=== PATIENT | male | born 1960 | race Hispanic/Latino ===

== ENCOUNTER 2019-11-25 20:36 | Inpatient (IN) | payer MEDICARE, OTHER ==
[2019-11-25 21:10] VITALS: BMI 22.9
[2019-11-25] MEDS ORDERED: Ondansetron PF 4 MG/2 ML Vial IVP PRN (22:31)
[2019-11-25] MEDS: Sodium Chloride 0.9% 1,000 ML IV SCH (22:43)
[2019-11-25] MEDS ORDERED: Acetaminophen 650 MG/20.3 ML UDCUP PO PRN (22:48)
[2019-11-25 23:10] LABS: INR-International Normal Ratio 3.2; Prothrombin Time 32.4 SEC (12.0-14.7)
[2019-11-26] MEDS ORDERED: Acetaminophen 500 MG TAB PO PRN (01:17)
--- NOTE | 2019-11-26 01:59 | HP ---
PRIMARY CARE PHYSICIAN: Dr. Sharp. CHIEF COMPLAINT: Dysphagia and weakness and unexpected weight loss x3 months. Transfer from [facility] [place] ER for further evaluation. HISTORY OF PRESENT ILLNESS: A 59-year-old male, lifelong heavy smoker, past medical history of hypertension; paroxysmal atrial fibrillation, on Coumadin; glaucoma, who presented to [facility] [place] ER for 3-month history of dysphagia, only being able to tolerate liquids associated with 40-pound unexpected weight loss and fatigue that prompting evaluation. He noted associated complaints of nausea with inability to vomit. He denies any angina, dyspnea, fevers, chills, hematemesis, hematochezia, melena, hemoptysis, or any localized pain. In the ER, workup with a 2-view chest x-ray revealed a very large middle and anterior mediastinal mass measuring up to 10 cm in size, which was compared with a prior January 2018 chest x-ray. A followup CT chest with contrast revealed a large heterogeneous mass in the left upper lobe with extension into the mediastinum in the region of AP window with mass abutting the trachea as well as a large central area of necrosis and mass measuring 9.4 cm x 11 cm x 9.6 cm with volume loss adjacent to large mass resulting in mild mass effect of the left upper lobe bronchus; additionally, a mass in the anterior medial right upper lobe measuring 2.1 cm was noted as well as lymphadenopathy as well as hypodense lesions throughout each liver lobe concerning firm metastatic lesions. The patient was transferred to [facility] ER for further evaluation. At bedside, the patient corroborates history. He offers no other acute complaints. He complains of headaches in the right side, but denies any focal neurological deficits or seizure-like activity. He denies any prior cancer screening workup. Nursing staff notes no other acute events. PAST MEDICAL HISTORY: Chronic lifelong smoker, previously smoking up to 7 packs per day; hypertension; paroxysmal atrial fibrillation, on Coumadin; glaucoma. PAST SURGICAL HISTORY: Rotator cuff surgery. SOCIAL HISTORY: The patient started smoking since age of 9. He previously smoked up to 7 packs per day, but he currently smokes a pack a week. He denies any illicit drug use. 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 ALLERGIES: NONE REPORTED. REVIEW OF SYSTEMS: Pertinent positives as per HPI. Remainder of review of systems negative. HOME MEDICATIONS: Home medication will be reviewed as per admission medication reconciliation. FAMILY HISTORY: The patient reports that all his family members are . PHYSICAL EXAMINATION: VITAL SIGNS: Temperature maximum 98.6, pulse 66 to 76, blood pressure 132/71 to 152/79, oxygen saturation 97% on room air, respirations 16 to 18. GENERAL APPEARANCE: An elderly, thin, malnourished-appearing male, who is awake, alert, oriented, coherent, lucid, not in any obvious distress. HEENT: Normocephalic, atraumatic. No facial asymmetry. Mucous membranes appear moist. Pupils equally round. Extraocular muscles intact. NECK: Supple. Trachea appears to be midline and the patient is able to swallow without any difficulty with elevation of trachea noted. CARDIOVASCULAR: S1, S2. Regular rate and rhythm. No harsh murmurs. No reproducible chest wall tenderness to palpation. LUNGS: Bilateral equal air entry on posterior auscultation. Nonlabored respirations. Symmetrical chest expansion. No wheezing or rales. ABDOMEN: Soft, nontender, nondistended. EXTREMITIES: No appreciable lower extremity edema. SKIN: Warm to touch without rash, pallor, or abrasions. NEUROLOGIC: No facial asymmetry. No drift of upper or lower extremities. 2+ hand mat machine tender intact. No tremors noted. LABORATORY DATA: Labs from outside facility reviewed. WBC 7.8, H and H 12.5/40.3, and platelets 186. Sodium 146, potassium 3.4, chloride 109, bicarb 27, glucose 95, BUN and creatinine 9/0.6, total protein 8.0, albumin 3.3, AST 22, ALT 17, alkaline phosphatase 117, serum osmolality 289. INR 3.2. IMAGING: Two-view chest x-ray in comparison to January 2018 reveals a very large middle and anterior mediastinal mass obscuring the anterior aspect. Possible postobstructive pneumonitis of the left lung base. CT chest with contrast in comparison to December 2010 reveals a large heterogeneous mass in the left upper lobe with extension to the mediastinum abutting trachea measuring 9.4 cm x 11 cm x 9.6 cm with large central area of hypoattenuation, likely related to necrosis. The mass in anterior aspect of medial right upper lobe measuring 2.1 cm. Prominent pretracheal lymphadenopathy abutting the mass extending into the mediastinum. Several hypodense lesions seen throughout each lobe of the liver. ASSESSMENT: 1. Metastatic cancer, newly diagnosed, unspecified, Primary suspected bronchogenic. The [facility] He is noted to have prodromal complaints over the past several months with abnormal findings as aforementioned. We will consult Pulmonology/Oncology for further evaluation and assessment. We will hold Coumadin. The patient will likely require definitive diagnostic evaluation as an outpatient. 2. Dysphagia, likely secondary to #1. We will consult GI for endoscopic evaluation, consideration for PEG tube. Hold anticoagulation. Repeat INR in a.m., noting the patient is on Coumadin, which will be held. 3. Unexpected weight loss likely secondary to #1. Continue oral dietary supplements with Boost and Ensure, which the patient has been tolerating at home. 4. Heavy lifelong smoker. The patient has been smoking since age of 9 and states that he smoked up to 7 packs per day for a long time. Currently smokes less than 1 pack per week. He requires complete nicotine cessation counseling. 5. Paroxysmal atrial fibrillation, currently normal sinus rhythm. Hold Coumadin. Monitor INR in case any diagnostic evaluations are necessary. 6. Hypertension, benign. 7. Glaucoma. Continue eyedrops. 8. Deep venous thrombosis prophylaxis: SCDs and ambulation. The patient is anticoagulated. 9. Check a.m. labs on 11/26/2019. 10. Code status: Full code as discussed with the patient. He will speak with his family members. DISPOSITION: Inpatient Medr unit admission. Job ID: [id number]
[2019-11-26 05:14] LABS: INR-International Normal Ratio 3.6; Prothrombin Time 35.2 SEC (12.0-14.7)
[2019-11-26] MEDS ORDERED: Phytonadione Neonatal 1 MG/0.5 ML AMP IM SCH (09:45)
[2019-11-26] MEDS ORDERED: Amoxicillin/Potassium Clav 875 MG TAB PO SCH (09:45)
[2019-11-26] MEDS: Sodium Chloride 0.9% 1,000 ML IV SCH ×2 (11:58→16:58)
--- NOTE | 2019-11-26 12:47 | PQF ---
CLINICAL DOCUMENTATION IMPROVEMENT CLARIFICATION FORM: ICD-10 Updated PLEASE DO AN ADDENDUM TO THE PROGRESS NOTE WITH ANY DOCUMENTATION UPDATES OR ADDITIONS AND CARRY THROUGH TO DC SUMMARY. THANK YOU. Date: 11/26/19 ATTN: DR. MORALES Please exercise your independent, professional judgment in responding to the clarification form. Clinical indicators are provided on the bottom of this form for your review Please check appropriate box(s): [ ] Protein Calorie Malnutrition: [ ] Mild [ x ] Moderate [ ] Severe [ ] Other Malnutrition (please specify) __ [ ] Underweight without malnutrition [ ] Cachexia [ ] Other diagnosis [ ] Unable to determine In addition, please specify: Present on Admission (POA): [ ] Yes [ ] No [ ] Unable to determine CLINICAL INDICATORS - SIGNS / SYMPTOMS / LABS / RESULTS AND LOCATION IN MR H&P 11/26: "40-POUND UNEXPECTED WEIGHT LOSS" "MALNOURISHED-APPEARING MALE" RISKS: METASTATIC CANCER (H&P 11/26) DYSPHAGIA (H&P 11/26) TREATMENT: ORAL DIETARY SUPPLEMENTS (H&P 11/26) DIETARY CONSULT Moderate Malnutrition (in acute illness) Energy Intake: <75% of estimated energy requirement for > 7 days Weight Loss: 1-2%/1 week; 5%/ 1 month; 7.5%/3 months Other: mild body fat loss; mild muscle mass loss; mild fluid accumulation; Severe Malnutrition (in acute illness) Energy Intake: < 50% of estimated energy requirement for > 5 days Weight Loss: >1-2%/1 week; >5%/1 month; >7.5%/3 months Other: moderate body fat loss; moderate muscle mass loss; moderate- severe fluid accumulation; measurably reduced switch cleaner strength Moderate Malnutrition (in chronic illness) Energy Intake: <75% of estimated energy requirement for >1 month [employer] Sanitary Engineer [employer] Winform ViewerWeight Loss: 5%/1 month; 7.5 %/3 months; 10%/6 months; 20%/1 year Other: mild body fat loss; mild muscle mass loss; mild fluid accumulation Severe Malnutrition (in chronic illness) Energy Intake: <75% of estimated energy requirement for >1 month Weight Loss: >5%/1 month; >7.5%/3 months; >10%/6 months; >20%/1 year Other: severe body fat loss; severe muscle mass loss; severe fluid accumulation ; measurably reduced switch cleaner strength (This form is maintained as a part of the permanent medical record) 2014 [employer] All Rights Reserved KENDRA [email or web address] Office: [phone] [facility]
--- NOTE | 2019-11-26 14:01 | CON ---
DATE OF CONSULTATION: 11/26/2019 SERVICE: Pulmonary Medicine. REASON FOR CONSULTATION: Pulmonary mass. HISTORY OF PRESENT ILLNESS: The patient is a 59-year-old male with past medical history significant for extensive smoking history. He has had about 30 - to 40-pound weight loss in the past 3 months. He is having on and off hemoptysis. He denies having any night sweats. He was in his usual state of health when he presented to the emergency department because of the increasing weakness. He also had some dysphagia. In the emergency department, chest x-ray was performed demonstrating a large lesion in the left upper lobe. This prompted a CT of the chest. He denies any acute infectious syndrome. He is not having any muscle aches or pains, or coughing up any purulent sputum. PAST MEDICAL HISTORY: 1. Atrial fibrillation, paroxysmal. 2. Glaucoma. 3. Extensive smoking history (greater than 200 pack-year history). PAST SURGICAL HISTORY: Rotator cuff surgery. SOCIAL HISTORY: Negative for tobacco or illicit drug use. He has no exposure to chemicals, dust, asbestos, or tuberculosis. 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 He has an extensive smoking history. FAMILY HISTORY: Noncontributory. ALLERGIES: NO KNOWN DRUG ALLERGIES. MEDICATIONS: List of his inpatient medications was reviewed. No specific updates were made at this time. REVIEW OF SYSTEMS: General; head, ears, eyes, nose, and throat; cardiovascular; respiratory; GI; ; musculoskeletal; neurologic; and skin are negative except as mentioned in HPI. PHYSICAL EXAMINATION: VITAL SIGNS: Afebrile, pulse 61, blood pressure 143/79, respirations 18, and saturation 97% on room air. GENERAL: The patient is awake and alert, in no apparent distress. LUNGS: Wonderful air entry with no prolonged expiratory phase or wheezing present. HEART: Normal rate, regular. ABDOMEN: Soft, nontender, nondistended. Bowel sounds are positive. MUSCULOSKELETAL: No cyanosis or clubbing. There is no pitting in the bilateral lower extremities. NEUROLOGIC: Grossly nonfocal. LABORATORY DATA: INR 3.6. CBC is essentially unremarkable. Basic metabolic profile is also unremarkable. INR however is 3.6. IMAGING STUDIES: CT of the chest from outside facility demonstrates an 11 cm left upper lobe mass. It seems to be extending into the mediastinum. There is also a pretracheal lymph node and multiple liver lesions. ASSESSMENT: 1. Pulmonary mass with likely metastatic process. 2. Tobacco abuse. DISCUSSION AND PLAN: Because of the patient's ongoing headaches, we will get an MRI to make certain that he does not have any intracranial abnormalities. If he does, I would recommend steroids initially. At this point, we need to get a sample out of his chest. I will hold his anticoagulation. I give him a dose of vitamin K. Once his INR corrects into the normal range, we can take him down safely for procedure. Interventional Radiology suggests they can hit the right lateral liver lesion. Bronchoscopy would be technically easy, though because of the necrotic nature of this mass, I am concerned that we could get a false negative. In the event that he has a postobstructive process occurring here, I will put the patient on some Augmentin. Clinically, however, he does not really have features of an acute infectious process. Either way, if he remains in the hospital or is discharged from the hospital, we can do the bronchoscopy on Friday. Pulmonary will follow intermittently. If he gets into trouble through the weekend, please give Dr. Del Rosario a phone call. If for some reason, his INR suddenly improves and he remains in the hospital, we can move up our time table to as early as Friday. 70 minutes have been devoted to this patient in various activities. I personally reviewed all imaging studies and laboratory data noted within this document. For fifty percent of this time, I was interacting with the patient at the bedside or coordinating care with the care team. For the remainder of the time I was immediately available to the patient in the hospital unit. Job ID: [id number] MTDD
[2019-11-26 14:50] LABS: Calc. Creatinine Clearance 140 mL/min (70-130); Estimated GFR-MDRD Greater than 90
[2019-11-26] MEDS ORDERED: Magnevist 469MG/ML 20 ML VIAL ONE (15:34)
--- NOTE | 2019-11-26 18:42 | MRI ---
MRI OF BRAIN WITH AND WITHOUT CONTRAST: 11/26/19 HISTORY: Evaluate for metastatic disease. Headache. COMPARISON: CT brain from 2015. FINDINGS: On the diffusion weighted imaging sequence, there are no abnormal foci of diffusion restriction. This is confirmed on the ADC map. On the susceptibility weighted imaging sequence, there is a focal area of blooming in the left fronta l subcortical white matter with signal loss on the T1 weighted imaging sequence suggesting an old hem orrhage. Focal area of gliosis in the right subcortical frontal white matter. No midline shift. No mass effect. [place] [employer] [place] flow voids are maintained. The dural venous sinus es are patent including the transverse sinuses and superior inferior sagittal sinus. There are no abnormal focal areas of intra-axial or extra-axial enhancement. No abnormal leptomeninge al or pachymeningeal enhancement. IMPRESSION: 1. No evidence for intracranial metastatic disease. 2. Small focal area of gliosis right middle frontal gyrus subcortical white matter likely relate d to old microangiopathic change. 3. Possible small arachnoid cyst along the right superior temporal gyrus versus atrophy from an old infarct although there is lack of adjacent gliosis. 4. No acute hemorrhage or infarct. POS: HOME
--- NOTE | 2019-11-26 20:22 | CON ---
DATE OF CONSULTATION: REASON FOR CONSULT: Pulmonary mass and liver mets. HISTORY OF PRESENT ILLNESS: Mr. Yancey is a 59-year-old male, who presented to the [facility] with hemoptysis. He underwent a CT of his chest, which showed a 10 cm mass in the left upper lobe with extension into the mediastinum. He also had a 2.1 cm right upper lobe mass. There was peritracheal lymphadenopathy. He underwent a CT scan of his abdomen, which showed metastatic disease in the liver. The patient is on anticoagulation for atrial fibrillation. He was transferred to this facility for further workup. He has been seen by the final assembly worker, who has held his Coumadin for possible bronchoscopy or liver biopsy. The patient claims 130 pounds weight loss over the past year. He states he has lost significant amount of weight since . He complains of early satiety and poor appetite, occasional blood-tinged sputum and frequent cough. He has come back on smoking secondary to this cough. The patient was seen at bedside with his sister present. His only complaint is headache, which he attributes to being unable to eat. PAST MEDICAL HISTORY: 1. Hypertension. 2. Atrial fibrillation. 3. Coronary artery disease. 4. Glaucoma. PAST SURGICAL HISTORY: Rotator cuff repair. ALLERGIES: NO KNOWN DRUG ALLERGIES. HOME MEDICATIONS: 1. Isosorbide. 2. Carvedilol. 3. Sotalol. 4. Lisinopril. 5. Aspirin. 6. Pravastatin. 7. Acetazolamide. 8. Cardizem. 9. Jantoven. 10. Eyedrops. FAMILY HISTORY: Father had head and neck cancer. SOCIAL HISTORY: Single. Extensive smoking history. REVIEW OF SYSTEMS: A 10-point review of systems is negative except for noted in HPI. PHYSICAL EXAMINATION: VITAL SIGNS: Temperature 98.3, pulse is 61, respiratory rate 18, blood pressure is 143/79, he is 97% on room air. GENERAL: This is a well-developed, well-nourished male, in no acute distress. HEENT: Normocephalic, atraumatic. Pupils are equal and reactive to light. His sclerae are injected. NECK: Supple. CV: Regular rate and rhythm. LUNGS: Diminished. ABDOMEN: Soft and nontender. Bowel sounds are positive. EXTREMITIES: No clubbing or cyanosis. SKIN: No rash. HEMATOLOGICAL: No petechiae or purpura. NEUROLOGICAL: Nonfocal. LABORATORY DATA: Pertinent labs drawn in the ER: His WBC is 7.8, hemoglobin 12.5, hematocrit 40.3, platelet count is 186,000. He has 62% neutrophils, 28% lymphocytes. Sodium 146, potassium 3.4, chloride 109, CO2 is 27, BUN is 9, creatinine 0.6. Serum total protein is 8, albumin 3.3. Radiology per HPI. ASSESSMENT: 1. Large left upper lobe mass with metastatic disease in the right lung and liver. 2. Extensive smoking history. 3. Atrial fibrillation, on anticoagulation. DISCUSSION: The patient's anticoagulation has been held in anticipation of a biopsy of either the liver mass or bronchoscopy of the mediastinal mass. The patient would like to go home and follow up in the outpatient setting next week to have this procedure done. He does have an MRI of his brain ordered due to headaches, which is appropriate. He will be discharged at the discretion of the hospitalist and will see him in the outpatient setting once diagnosis has been established. Thank you for the consult. Job ID: [id number]
[2019-11-26] MEDS ORDERED: Latanoprost 0.005% Ophth Soln 2.5 ml Bottle EA EYE SCH (21:00)
[2019-11-26] MEDS ORDERED: Pravastatin Sodium 20 MG TAB PO SCH (21:00)
--- NOTE | 2019-11-26 22:04 | CON ---
DATE OF CONSULTATION: REASON FOR CONSULTATION: Dysphagia. HISTORY OF PRESENT ILLNESS: Mr. Yancey is a 59-year-old gentleman, who has 40 pounds history of weight loss, recently presented to an outside emergency room and was found to have a 10 cm mass in his left lung with impinges on the mediastinum and mediastinal structures. He has been seen by Pulmonary in consultation. Unfortunately, he is on anticoagulation and his INR is 3.5. Plans are for him to have an MRI of his brain tonight to make sure he does not have any brain METS and is normal to go home and come back for an outpatient bronchoscopy sometime next week with Pulmonary. I have been consulted regarding placing a PEG tube. The patient states he does not want a PEG tube. The patient states he can drink plenty of Ensure, boost, now he can eat eggs and eat everything except for bread, chicken, and beef. PAST MEDICAL HISTORY: Atrial fibrillation, paroxysmal on anticoagulation, glaucoma, and hypertension. PAST SURGICAL HISTORY: Rotator cuff surgery. SOCIAL HISTORY: He smokes 200-pack year history. Does not drink much alcohol and does not use drugs. 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 FAMILY HISTORY: Noncontributory. ALLERGIES: NONE. MEDICATIONS: At home: 1. Isosorbide mononitrate. 2. Diltiazem. 3. Diamox. 4. Betapace. 5. Warfarin. 6. Lisinopril. 7. Pravastatin. 8. Aspirin. 9. Lansoprazole. 10. Carvedilol. REVIEW OF SYSTEMS: No fever or chills. He has had some headaches. No melena, hematochezia, or hematemesis. PHYSICAL EXAMINATION: VITAL SIGNS: Temperature is 98.2, pulse 68, blood pressure 164/84. GENERAL: Oropharynx, no lesions. He has temporal muscle wasting and supraclavicular muscle wasting. NECK: Supple. No adenopathy. LUNGS: Clear. HEART: Regular without clicks or murmurs. ABDOMEN: Soft and nontender. There is no palpable hepatosplenomegaly. EXTREMITIES: No clubbing, cyanosis, or edema. LABORATORY STUDIES: INR is 3.6. Creatinine is 0.5. Other labs not available for my review. Per the admitting H and P, normal electrolytes, sodium 146. There is hemoglobin of 12.5 and white count 7.5, platelets 86,000. CT scan, I cannot review the CAT scan performed at outside hospital. I have called the radiologist, who can see those films to be in their system and he notes that the mass in the chest abuts the esophagus probably compresses peritracheal lymph nodes as well. There is concerning for masses in the liver. ASSESSMENT: 1. Lung mass, likely malignant liver masses, likely related to metastatic fashion. 2. Anticoagulation with atrial fibrillation. 3. Dysphagia. He can tolerate the same liquids, which go through a feeding tube that he is able to drink by mouth now. 4. Pulmonary plans on getting an MRI tonight to make sure he does not have any brain METS. He has had chronic headaches and if this is normal, release him with plans for outpatient bronchoscopy for diagnosis next week. As far as the PEG tube at presently, he does not need a PEG tube for his nutritional status. His weight loss is related to a presumed malignancy. If his oncologist and moose hunter in his treatment plan feel that he needs a PEG tube to get to radiation chemotherapy if that is part of his treatment, we are more than happy to re-evaluate him at the office and get that arranged. Please do not hesitate to contact me if that is the case. We will sign off for now. Job ID: [id number]
[2019-11-26] MEDS: Brimonidine Tartrate 0.2% Ophth Soln 5 ml Bottle EA EYE SCH (22:13)
[2019-11-26] MEDS: Timolol 0.5% Ophth Soln 5 ml Bottle EA EYE SCH (22:15)
[2019-11-26] MEDS: Amoxicillin/Potassium Clav 875 MG TAB PO SCH (22:16)
[2019-11-26] MEDS: Sotalol HCl 80 MG TAB PO SCH (22:17)
[2019-11-26] MEDS: Carvedilol 6.25 MG TAB PO SCH (22:20)
[2019-11-26] MEDS: Acetaminophen 650 MG/20.3 ML UDCUP PO PRN (22:23)
[2019-11-27 05:56] LABS: #Eosinphils 0.1 thou/uL (0.0-0.7); #Lymphocytes 1.7 thou/uL (1.20-3.40); #Monocytes 0.4 thou/uL (0.11-0.59); #Neutrophils 3.7 thou/uL (1.40-6.50); %Basophils 0.5 % (0.0-1.0); %Eosinophils 2.4 % (0.0-10.0); %Lymphocytes 27.8 % (21.0-51.0); %Monocytes 7.3 % (0.0-10.0); %Neutrophils 62.1 % (42.0-75.0); Hemoglobin 12.3 g/dL (14.0-18.0); Mean Corpuscular HGB CONC 32.2 g/dL (32.0-36.0); Mean Corpuscular Hemoglobin 26.7 pg (27.0-31.0); Mean Corpuscular Volume 82.9 fL (78.0-98.0); Mean Platelet Volume 8.6 fL (7.4-10.4); Platelet Count 144 thou/uL (130-400); RBC Distribution Width 13.3 % (11.5-14.5); Red Blood Cell (RBC) Count 4.62 mill/uL (4.70-6.10)
[2019-11-27 06:16] LABS: Anion Gap 11 mmol/L (10-20); BUN (Urea Nitrogen) 5 mg/dL (8.4-25.7); Calc. Creatinine Clearance 150 mL/min (70-130); Calcium 8.6 mg/dL (7.8-10.44); Carbon Dioxide 24 mmol/L (22-29); Chloride 108 mmol/L (98-107); Estimated GFR-MDRD Greater than 90; Glucose 89 mg/dL (70-105); Sodium 140 mmol/L (136-145)
[2019-11-27 06:25] LABS: Potassium 2.9 mmol/L (3.5-5.1)
[2019-11-27] MEDS: Acetaminophen 650 MG/20.3 ML UDCUP PO PRN (06:51)
[2019-11-27] MEDS: Sodium Chloride 0.9% 1,000 ML IV SCH (06:51)
[2019-11-27] MEDS ORDERED: Acetaminophen 325 MG TAB PO PRN (06:53)
[2019-11-27] MEDS ORDERED: Potassium Chloride 20 MEQ TAB PO SCH ×2 (07:00→11:00)
[2019-11-27] MEDS: Carvedilol 6.25 MG TAB PO SCH (08:58)
[2019-11-27] MEDS: Sotalol HCl 80 MG TAB PO SCH (08:58)
[2019-11-27] MEDS: Amoxicillin/Potassium Clav 875 MG TAB PO SCH (08:59)
[2019-11-27] MEDS ORDERED: Aspirin 81 mg Enteric Coated Tablet PO SCH (09:00)
[2019-11-27] MEDS ORDERED: Lisinopril 20 MG TAB PO SCH (09:00)
[2019-11-27] MEDS: Timolol 0.5% Ophth Soln 5 ml Bottle EA EYE SCH (09:00)
[2019-11-27] MEDS ORDERED: Isosorbide Mononitrate (ER) 30 MG TAB PO SCH (09:00)
[2019-11-27] MEDS: Brimonidine Tartrate 0.2% Ophth Soln 5 ml Bottle EA EYE SCH (09:10)
[2019-11-27] MEDS ORDERED: Potassium Chloride 10 MEQ in Premix Bag 1 BAG IVPB SCH (11:00)
[2019-11-27 15:19] VITALS: BP 131/78; TEMP 98.1
--- NOTE | 2019-11-27 16:05 | PRG ---
DATE OF SERVICE: 11/26/2019 SUBJECTIVE: The patient was seen at bedside. Complains of mild cough. Also complains of mild headache and then also complains of difficulty swallowing with solid foods, however, tolerating liquid. Denies any chest pain, fever, nausea, or vomiting at present. OBJECTIVE: VITAL SIGNS: Blood pressure 156/88, temperature 98.1, respiratory rate 16, pulse 86, and oxygen saturation room air 97%. GENERAL: The patient is lying in bed comfortably, in no distress. HEENT: Conjunctivae are normal. Oral mucosa moist. NECK: Supple. No JVD. No lymphadenopathy. CHEST: Normal vesicular breathing. Decreased air entry at left lower lung mckeon and upper lung mckeon. HEART: Sounds normal. ABDOMEN: Soft. EXTREMITIES: Negative edema of feet. No rash. No cyanosis. IMPRESSION: 1. 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 As per Dr. Lovett being arranged for a bronchoscopy next Friday. MRI brain ordered for to rule out intracranial metastasis. On hold the Coumadin for bronchoscopy. 2. Paroxysmal atrial fibrillation, on Coumadin, currently on hold. 3. History of glaucoma. Continue medications. 4. History of smoking history. 5. Hypertension. Continue home blood pressure medications. 6. Dysphagia to solids. The patient currently able to tolerate a liquid diet. GI evaluation appreciated. Recommended to continue liquid diet and to follow up post evaluation by bronchoscopy and oncologist if the patient needs a further intervention by GI. Plan discussed with the patient, , and nursing staff. Job ID: [id number]
[2019-11-27 17:21] LABS: Anion Gap 13 mmol/L (10-20); BUN (Urea Nitrogen) 4 mg/dL (8.4-25.7); Calc. Creatinine Clearance 133 mL/min (70-130); Carbon Dioxide 25 mmol/L (22-29); Chloride 107 mmol/L (98-107); Estimated GFR-MDRD Greater than 90; Glucose 85 mg/dL (70-105); Potassium 3.9 mmol/L (3.5-5.1); Sodium 141 mmol/L (136-145)
--- NOTE | 2019-11-27 20:16 | DIS ---
DATE OF ADMISSION: 11/25/2019 DATE OF DISCHARGE: 11/27/2019 DISCHARGE DIAGNOSES: 1. Left upper lung mass, possible primary lung mass. 2. Active smoker. 3. Hypokalemia. 4. History of glaucoma. 5. Hypertension. 6. Paroxysmal atrial fibrillation. PHYSICAL EXAMINATION: VITAL SIGNS: Blood pressure 156/88, temperature 98.1, pulse 61, respirations 16 , oxygen saturation 96% on room air, blood pressure 131/78. GENERAL: The patient is alert, awake, oriented, in no distress. CHEST: Normal vesicular breathing. HEART: Sounds are normal. ABDOMEN: Soft. EXTREMITIES: Negative edema of feet. IMAGING STUDIES: MRI brain, no evidence of intracranial metastatic disease. Small focal area of gliosis, right middle frontal gyrus. Subcortical white matter, likely related to old microangiopathic changes, possible small arachnoid cyst along the right superior temporal gyrus versus atrophy from an old infarct. There is a lack of adjacent gliosis. No acute hemorrhage or infarct. LABORATORY DATA: CBC unremarkable. INR on 11/26 of 3.6. BMP unremarkable except potassium 2.9. HOSPITAL SUMMARY: The patient, Bc Mcgregor with an active smoking history, presented with cough and he was transferred from [facility] ER, where CT chest and 2 x-rays were performed reveals a anterior mediastinal mass obscuring the anterior aspect, possible postobstructive pneumonitis of the left lung base. The patient also had INR of 3.2. The patient was evaluated by correspondence representative, Dr. Lovett and as the patient clinically stable , saturating well on room air and the patient is currently on Coumadin, recommended to discharge and to follow up on upcoming Friday for bronchoscopy. The patient was also evaluated by GI. As the patient able to tolerate liquid diet, recommended to continue liquid diet and to follow up post bronchoscopy for further evaluation if the patient needs any PEG tube placement in the future. Currently as the patient is tolerating a clear liquid diet, there is no indication for PEG tube placement. Also, the patient had a potassium of 2.9. The patient is currently being replaced with potassium. Once his potassium corrected, the patient being discharged home with a followup with Dr. Lovett on Friday for bronchoscopy and the patient is advised to follow up outpatient with correspondence representative post bronchoscopy to follow up with the results. Plan discussed with the patient by the nursing staff. Job ID: [id number] [facility]
[2019-11-27] MEDS ORDERED: AcetaZOLAMIDE 250 MG TAB PO SCH (21:00)
== END 2019-11-27 18:05 | disposition home or self-care (01) | DRG 180 ==
LOC: SJJU 20:36
PROVIDERS: ADMIT Emergency Medicine; ATTEND Emergency Medicine
DX: C34.12 Malignant neoplasm of upper lobe, left bronchus or lung (principal); J18.8 Other pneumonia, unspecified organism; E44.0 Moderate protein-calorie malnutrition; C38.3 Malignant neoplasm of mediastinum, part unspecified; R93.0 Abnormal findings on diagnostic imaging of skull and head, not elsewhere classified; E87.6 Hypokalemia; F17.200 Nicotine dependence, unspecified, uncomplicated; I10 Essential (primary) hypertension; I48.0 Paroxysmal atrial fibrillation; H40.9 Unspecified glaucoma; Z68.22 Body mass index [BMI] 22.0-22.9, adult; R13.10 Dysphagia, unspecified; Z79.01 Long term (current) use of anticoagulants; Z98.890 Other specified postprocedural states; I25.10 Atherosclerotic heart disease of native coronary artery without angina pectoris
CPT/HCPCS: 36415; 70553; 80048; 82565; 85025; 85610; 86850; 86900; 86901; 90471; 90732; A9579; G0009; J3480

== ENCOUNTER 2019-12-01 10:02 | Day surgery (SDC) | payer MEDICARE ==
[2019-11-30 15:26] VITALS: BMI 22.8
[2019-12-01] MEDS ORDERED: Ondansetron PF 4 MG/2 ML Vial ONE (10:16)
[2019-12-01] MEDS ORDERED: Rocuronium Bromide 10 MG/ML (10ML VIAL) ONE (10:16)
[2019-12-01] MEDS ORDERED: PHENYLEPHRINE-NS 100 MCG/ML 10 ML SYRINGE ONE (10:16)
[2019-12-01] MEDS ORDERED: Lidocaine 1% PF 5 ML VIAL ONE ×2 (10:16)
[2019-12-01] MEDS ORDERED: ePHEDrine/0.9% NaCl/PF SYRINGE 50 mg/10 ml ONE (10:16)
[2019-12-01] MEDS ORDERED: PROPOFOL 200 MG/20 ML VIAL ONE (10:16)
[2019-12-01] MEDS ORDERED: Dexamethasone 20 MG/5 ML VIAL ONE (10:16)
[2019-12-01 11:18] LABS: INR-International Normal Ratio 1.3; Prothrombin Time 15.7 SEC (12.0-14.7)
[2019-12-01] MEDS ORDERED: Lidocaine 2% Jelly 5 ML TUBE ONE (12:41)
[2019-12-01] MEDS ORDERED: Fentanyl 100 MCG/2 ML VIAL ONE (12:43)
[2019-12-01] MEDS ORDERED: SUGAMMADEX SODIUM 200 MG/2 ML VIAL ONE (12:44)
[2019-12-01] MEDS ORDERED: Morphine 4 MG/ML VIAL ONE (14:26)
--- NOTE | 2019-12-01 16:41 | OP ---
DATE OF PROCEDURE: 12/01/2019 SERVICE: Pulmonary Medicine. PROCEDURES: Fiberoptic bronchoscopy with: 1. Visual airway inspection. 2. Endobronchial brush of the left upper lobe. 3. Bronchoalveolar lavage in the left upper lobe. 4. Transbronchial biopsies from the left upper lobe. PREPROCEDURE DIAGNOSIS: Pulmonary mass. POSTPROCEDURE DIAGNOSIS: Pulmonary mass. PROCEDURE FREELANCE OPERATOR: Gilmer Lovett MD MEDICATIONS USED: For list of medications used, please refer to Anesthesia documentation. PREANESTHESIA ASSESSMENT: H and P had been performed. The patient's medications and allergies were reviewed. Informed consent was obtained after discussing the risks, benefits, and rationale for performing the procedure as well as alternative sampling options. DESCRIPTION OF PROCEDURE: Time-out was performed identifying the correct procedure and patient with name and date of . A diagnostic fiberoptic bronchoscope was advanced through the endotracheal tube. A tracheobronchial tree inspection was carried out with identification of the right upper lobe, right middle lobe, right lower lobe, left upper lobe, lingula, and left lower lobe. No discrete endobronchial disease was identified, though the left upper lobe bronchus was extraordinarily friable and easily prone to bleeding. Every segment I could identify in the upper lobe was brushed. There was no bronchus I could cannulate that would take me into the center of this mass lesion. Every bronchus seemed to skirt the edge of it. One of the bronchus is in the anterolateral segment of the left upper load, bled heavily with brushing alone. As such, after hemostasis was verified, a BAL was performed. Subsequent endobronchial biopsies were performed after instillation of epinephrine. There was no additional significant bleeding. The bronchoscope was removed from the patient and he was sent to the postanesthesia care unit for recovery. Postprocedure fluoroscopy did not demonstrate a pneumothorax. FINDINGS: 1. No endobronchial disease was identified, though the left upper lobe bronchus was extraordinarily friable, and prone to bleeding. 2. Secretions were minimal. SPECIMENS OBTAINED: 1. Pathology on BAL, brushings, and transbronchial biopsy. 2. Microbiology on BAL. COMPLICATIONS: None. ESTIMATED BLOOD LOSS: 15 mL. FLUOROSCOPY TIME: 2 minutes. DISPOSITION: The patient will be discharged home with postprocedure instructions after he meets criteria in the postanesthesia care unit. Job ID: [id number]
== END 2019-12-01 15:37 | disposition home or self-care (01) ==
LOC: SDC 10:02
PROVIDERS: ATTEND Internal Medicine
PROC: 0B9G8ZX Drainage of Left Upper Lung Lobe, Via Natural or Artificial Opening Endoscopic, Diagnostic (ICD-10-PCS; principal; 2019-12-01)
PROC: 0BBG8ZX Excision of Left Upper Lung Lobe, Via Natural or Artificial Opening Endoscopic, Diagnostic (ICD-10-PCS; 2019-12-01)
DX: D49.1 Neoplasm of unspecified behavior of respiratory system (principal); I48.0 Paroxysmal atrial fibrillation; Z87.891 Personal history of nicotine dependence; K76.9 Liver disease, unspecified; Z79.01 Long term (current) use of anticoagulants; Z79.2 Long term (current) use of antibiotics; Z79.82 Long term (current) use of aspirin; Z79.899 Other long term (current) drug therapy
CPT/HCPCS: 36415; 76000; 85610; 88104; 88112; 88305; 88312; 88313; 88341; 88342; J1100; J2001; J2270; J2405; J2704; J3010; J7620

== ENCOUNTER 2019-12-15 15:14 | Emergency (ER) | payer MEDICARE ==
[~2019-12-15 15:14] MED LIST: Iopamidol-370 76% 500 ML 1 ML ONE
[2019-12-15] MEDS ORDERED: Aspirin 325 MG TAB ONE (16:00)
[2019-12-15 16:19] LABS: #Basophils 0.1 thou/uL (0.0-0.2); #Eosinphils 0.1 thou/uL (0.0-0.7); #Lymphocytes 1.6 thou/uL (1.20-3.40); #Monocytes 0.8 thou/uL (0.11-0.59); #Neutrophils 10.4 thou/uL (1.40-6.50); %Basophils 0.8 % (0.0-1.0); %Eosinophils 0.7 % (0.0-10.0); %Lymphocytes 12.1 % (21.0-51.0); %Neutrophils 80.5 % (42.0-75.0); Hemoglobin 13.7 g/dL (14.0-18.0); Mean Corpuscular Hemoglobin 27.1 pg (27.0-31.0); Mean Corpuscular Volume 84.9 fL (78.0-98.0); Mean Platelet Volume 7.9 fL (7.4-10.4); Platelet Count 187 thou/uL (130-400); Red Blood Cell (RBC) Count 5.05 mill/uL (4.70-6.10)
--- NOTE | 2019-12-15 16:39 | RAD ---
EXAM: Single view of the chest HISTORY: Left-sided chest pain COMPARISON: 03/10/2015 FINDINGS: Single view of the chest shows a normal sized cardiomediastinal silhouette. There is a michelle y large mass in the left hilar region measuring 10 cm in greatest dimension. There also appears to be a 1.9 cm mass on the right. No pleural effusion is seen. The bones are unremarkable. IMPRESSION: Bilateral lung masses. A CT the chest with contrast is recommended for further evaluation .
[2019-12-15 16:41] LABS: ALT (SGPT) 20 U/L (8-55); AST (SGOT) 22 U/L (5-34); Albumin 3.6 g/dL (3.5-5.0); Alkaline Phosphatase 169 U/L (40-110); Anion Gap 12 mmol/L (10-20); BUN (Urea Nitrogen) 10 mg/dL (8.4-25.7); Bilirubin, Total 0.9 mg/dL (0.2-1.2); Calc. Creatinine Clearance 0 mL/min (70-130); Carbon Dioxide 22 mmol/L (22-29); Chloride 107 mmol/L (98-107); Estimated GFR-MDRD Greater than 90; Globulin 3.6 g/dL (2.4-3.5); Glucose 101 mg/dL (70-105); Potassium 3.7 mmol/L (3.5-5.1); Protein, Total 7.2 g/dL (6.0-8.3); Sodium 137 mmol/L (136-145)
[2019-12-15 17:10] LABS: CK (CPK) 32 U/L (30-200); Lipase 12 U/L (8-78)
--- NOTE | 2019-12-15 17:59 | CT ---
CT ANGIO OF CHEST PERFORMED WITH INTRAVENOUS CONTRAST ENHANCEMENT WITH 3D RECONSTRUCTIONS: 12/15/19 HISTORY: Chest pain that started about an hour ago. Patient states he was diagnosed with a lung mass approxima tely three weeks ago. COMPARISON: Chest x-ray done earlier today. A large left upper lobe lung mass is seen. It measures approximately 9.8 cm in diameter. It encases t he left upper lobe pulmonary artery which is markedly narrowed. There is mediastinal lymphadenopathy noted. This actually could be confluent extension of the mass but I would favor it as adenopathy in t he aorticopulmonary window region. There is an anterior segment right upper lobe lung mass measuring 2.1 cm. There is some subtle areas of nodularity in the left upper lobe but adjacent to this larger lung mass. The thoracic aorta is normal in caliber. There is good pulmonary artery opacification and no CT evide nce of pulmonary embolus. A small left pleural effusion is identified. The visualized portions of the adrenal glands appear unremarkable. In arterial phase exam, there appe ars to be several liver masses present. No lytic or blastic bony changes seen. IMPRESSION: 1. Bilateral lung masses consistent with patient's history. Also liver masses are identified hig hly suspicious for metastatic involvement of the liver. 2. No CT evidence for pulmonary embolus. 3. Very small left pleural effusion. POS: [facility]
== END 2019-12-15 18:15 | disposition home or self-care (01) ==
LOC: ERS 15:14
DX: R07.81 Pleurodynia (principal); R09.1 Pleurisy; E78.5 Hyperlipidemia, unspecified; E78.00 Pure hypercholesterolemia, unspecified; I10 Essential (primary) hypertension; I49.9 Cardiac arrhythmia, unspecified; I48.91 Unspecified atrial fibrillation; Z87.891 Personal history of nicotine dependence
CPT/HCPCS: 36415; 71045; 71275; 80053; 82550; 83690; 84484; 85025; J7620; Q9967

== ENCOUNTER 2019-12-21 12:51 | Outpatient (CLI) | payer MEDICARE ==
--- NOTE | 2019-12-21 16:42 | PET ---
EXAM: PET/CT HISTORY: Lung mass TECHNIQUE: PET scanning with CT attenuation correction was performed from the vertex of the brain to the proxima l thighs following the intravenous administration of 11.6 millicuries [id number]. COMPARISON: CT of the thorax dated December 15, 2019 FINDINGS: Biodistribution:The biodistribution for the exam appears acceptable. Head and neck: There is appropriate background activity within the brain. There is a hypermetabolic l eft level 4 lymph node with a peak SUV uptake of 16.53 and a mean uptake of 12.24. There is a mildly hypermetabolic right nonenlarged level for lymph node measuring 6 mm with a peak activity 1.53 . No additional hypermetabolic lymphadenopathy or masses identified. Thorax: The large left upper lobe suprahilar mass with mediastinal invasion demonstrates a peak SUV o f activity of 10.02 and a mean activity 9.58. The hypermetabolic extension into the AP window has a peak activity of 9.9 and a mean activity 9.1. There is a mildly enlarged precarinal lymph node withou t associated hypermetabolic uptake measuring 1.1 cm. There is a hypermetabolic right suprahilar lymph node with a peak SUV of 4.6 cm in activity 4.12. The right upper lobe pulmonary nodule has a pe ak activity of 4.03 and a mean activity of 3.77. Abdomen and pelvis: There is expected background activity within the GI and systems.There are nume [place] hypermetabolic liver lesions. Lesion within the right hepatic dome has a peak activity of 7.33 and a mean activity 7.13. No hypermetabolic adrenal lesion is evident. No hypermetabolic embolic asci silvestre is demonstrated. Osseous structures and skin: There is a small focal of hypermetabolic activity involving the left hank rnal body with a peak activity of 3.56 and a mean activity of 3.36. IMPRESSION: Abnormal PET/CT 1. Large hypermetabolic suprahilar mass with mediastinal invasion is consistent with malignancy. Prob able hypermetabolic metastatic lesion to the right upper lobe. 2. Hypermetabolic malignant lymphadenopathy of the right suprahilar region, left supraclavicular sheela on and probably within the right supraclavicular region. 3. Hypermetabolic hepatic metastatic disease. 4. Focus of hypermetabolic activity involving the left sternal body is suspicious for solitary metast atic lesion of the sternum.
== END 2019-12-21 12:52 | disposition home or self-care (01) ==
LOC: PET 12:51
PROVIDERS: ATTEND Internal Medicine
DX: C34.90 Malignant neoplasm of unspecified part of unspecified bronchus or lung (principal); R91.8 Other nonspecific abnormal finding of lung field; R59.0 Localized enlarged lymph nodes
CPT/HCPCS: 78815; A9552

== ENCOUNTER 2020-01-03 08:38 | Day surgery (SDC) | payer MEDICARE ==
[2019-12-31 15:00] VITALS: BMI 20.5
[~2020-01-03 08:38] MED LIST changes: +FLU VACC QS2019-20(6MOS UP)/PF 60 MCG/0.5 ML SYRINGE IM ONE; -Iopamidol-370 76% 500 ML 1 ML ONE
[2020-01-03] MEDS ORDERED: Fentanyl 100 MCG/2 ML VIAL ONE (09:41)
[2020-01-03] MEDS ORDERED: Midazolam HCl 2 mg/2 ml Vial ONE (09:41)
[2020-01-03] MEDS ORDERED: Sodium Bicarbonate 2.5 MEQ/5 ML VIAL ONE (09:42)
[2020-01-03 11:35] VITALS: BP 96/64; TEMP 98
--- NOTE | 2020-01-03 12:09 | CT ---
CT-guided biopsy liver mass HISTORY: Lung mass. Liver mass. FINDINGS: After explaining the procedure and answering all questions, limited CT imaging of the abdom en was performed. Sterile technique, buffered local anesthesia, CT guidance, and a right anterolateral approach were used to carefully advance a 17-gauge trocar needle into the hypodense mas s in the anterior segment right liver lobe. Position was confirmed with CT. A total of 3 18-gauge core biopsy specimens were obtained and submitted to Dr. Bello from pathology w ho confirmed specimen adequacy. Needle was removed. No evidence of complication. Patient tolerated the procedure well and was returne d to the holding area in good condition for further monitoring. IMPRESSION: Technically successful CT-guided biopsy liver mass. Pathology is pending.
--- NOTE | 2020-01-05 12:31 | CT ---
CT-guided biopsy liver mass HISTORY: Lung mass. Liver mass. FINDINGS: After explaining the procedure and answering all questions, limited CT imaging of the abdom en was performed. Sterile technique, buffered local anesthesia, CT guidance, and a right anterolateral approach were used to carefully advance a 17-gauge trocar needle into the hypodense mas s in the anterior segment right liver lobe. Position was confirmed with CT. A total of 3 18-gauge core biopsy specimens were obtained and submitted to Dr. Bello from pathology w ho confirmed specimen adequacy. Needle was removed. No evidence of complication. Patient tolerated the procedure well and was returne d to the holding area in good condition for further monitoring. IMPRESSION: Technically successful CT-guided biopsy liver mass. Pathology is pending. Transcribed Date/Time: 01/05/2020 12:31 PM
== END 2020-01-03 12:15 | disposition home or self-care (01) ==
LOC: CT 08:38
PROVIDERS: ATTEND Internal Medicine
DX: C78.7 Secondary malignant neoplasm of liver and intrahepatic bile duct (principal); C34.90 Malignant neoplasm of unspecified part of unspecified bronchus or lung; J44.9 Chronic obstructive pulmonary disease, unspecified; I10 Essential (primary) hypertension; I48.91 Unspecified atrial fibrillation; I25.10 Atherosclerotic heart disease of native coronary artery without angina pectoris; E78.5 Hyperlipidemia, unspecified; H40.9 Unspecified glaucoma; F10.10 Alcohol abuse, uncomplicated; F17.200 Nicotine dependence, unspecified, uncomplicated; Z79.899 Other long term (current) drug therapy
CPT/HCPCS: 47000; 77012; 88307; 88313; 88333; 88334; 88341; 88342; J2250; J3010